=== PATIENT | female | born 1955 | race Hispanic/Latino ===

== ENCOUNTER 2021-06-19 08:51 | Outpatient (CLI) | payer OTHER | END 2021-06-19 08:52 | disposition home or self-care (01) | LOC: CSHMAMMO 08:51 | PROVIDERS: ATTEND Specialist | DX: Z08 Encounter for follow-up examination after completed treatment for malignant neoplasm (principal); Z85.3 Personal history of malignant neoplasm of breast | CPT/HCPCS: 77066; G0279 ==

== ENCOUNTER 2022-01-12 09:05 | Outpatient (CLI) | payer MEDICARE, OTHER ==
[2022-01-12] MEDS ORDERED: Magnevist 469MG/ML 20 ML VIAL ONE (09:34)
== END 2022-01-12 09:06 | disposition home or self-care (01) ==
LOC: CSHMRI 09:05
PROVIDERS: ATTEND Nurse Practitioner Adult Health
DX: G44.52 New daily persistent headache (NDPH) (principal); J32.9 Chronic sinusitis, unspecified
CPT/HCPCS: 70553; 82565

== ENCOUNTER 2022-04-08 12:31 | Outpatient (CLI) | payer MEDICARE, OTHER | END 2022-04-08 12:32 | disposition home or self-care (01) | LOC: CSHRAD 12:31 | PROVIDERS: ATTEND Nurse Practitioner Adult Health | DX: S60.012A Contusion of left thumb without damage to nail, initial encounter (principal); M25.531 Pain in right wrist; W19.XXXA Unspecified fall, initial encounter; S52.501A Unspecified fracture of the lower end of right radius, initial encounter for closed fracture; S52.601A Unspecified fracture of lower end of right ulna, initial encounter for closed fracture; S62.525A Nondisplaced fracture of distal phalanx of left thumb, initial encounter for closed fracture ==

== ENCOUNTER 2022-07-05 08:50 | Outpatient (CLI) | payer MEDICARE, OTHER | END 2022-07-05 08:51 | disposition home or self-care (01) | LOC: CSHMAMMO 08:50 | PROVIDERS: ATTEND Specialist | DX: Z08 Encounter for follow-up examination after completed treatment for malignant neoplasm (principal); Z85.3 Personal history of malignant neoplasm of breast | CPT/HCPCS: 77066; G0279 ==

== ENCOUNTER 2022-12-17 09:45 | Outpatient (CLI) | payer MEDICARE, OTHER | END 2022-12-17 09:46 | disposition home or self-care (01) | LOC: CSHMAMMO 09:45 | PROVIDERS: ATTEND Internal Medicine | DX: M85.88 Other specified disorders of bone density and structure, other site (principal); Z78.0 Asymptomatic menopausal state | CPT/HCPCS: 77080 ==

== ENCOUNTER 2022-12-21 12:51 | Outpatient (CLI) | payer MEDICARE, OTHER | END 2022-12-21 12:52 | disposition home or self-care (01) | LOC: CSHULT 12:51 | PROVIDERS: ATTEND Internal Medicine | DX: R01.1 Cardiac murmur, unspecified (principal); I51.9 Heart disease, unspecified | CPT/HCPCS: 93306 ==

== ENCOUNTER 2023-07-12 12:05 | Outpatient (CLI) | payer MEDICARE, OTHER | END 2023-07-12 12:06 | disposition home or self-care (01) | LOC: CSHMAMMO 12:05 | PROVIDERS: ATTEND Specialist | DX: Z12.31 Encounter for screening mammogram for malignant neoplasm of breast (principal); Z85.3 Personal history of malignant neoplasm of breast; Z98.890 Other specified postprocedural states | CPT/HCPCS: 77063; 77067 ==

== ENCOUNTER 2024-03-19 09:59 | Outpatient (CLI) | payer MEDICARE, OTHER ==
[2024-03-19] MEDS ORDERED: Magnevist 469MG/ML 20 ML VIAL ONE (10:28)
== END 2024-03-19 10:00 | disposition home or self-care (01) ==
LOC: CSHMRI 09:59
PROVIDERS: ATTEND Radiology Radiation Oncology
DX: C79.31 Secondary malignant neoplasm of brain (principal); Z98.890 Other specified postprocedural states; C50.919 Malignant neoplasm of unspecified site of unspecified female breast
CPT/HCPCS: 70553; 76377; A9579

== ENCOUNTER 2024-05-25 16:03 | Emergency (ER) | payer MEDICARE, OTHER ==
[~2024-05-25 16:03] MED LIST: Iopamidol 370 76% 100 ML VIAL ONE
[2024-05-25 19:22] LABS: #Basophils 0.04 10x3/uL (0.0-0.2); #Eosinophils 0.08 10x3/uL (0.0-0.5); #Monocytes 0.67 10x3/uL (0.0-1.1); #Neutrophils 2.22 10x3/uL (1.5-8.4); %Lymphocytes 25.3 % (18.0-47.0); %Monocytes 16.6 % (0.0-10.0); %Neutrophils 55.1 % (40.0-75.0); Hematocrit 36.8 % (34.9-44.5); Hemoglobin 12.9 g/dL (12.0-15.5); Mean Corpuscular HGB CONC 35.1 g/dL (32.0-36.0); Mean Corpuscular Hemoglobin 33.2 pg (27.0-33.0); Mean Corpuscular Volume 94.8 fL (81.6-98.3); Mean Platelet Volume 8.3 fL (7.4-10.4); Platelet Count 368 10x3/uL (150-450); RBC Distribution Width 13.3 % (11.5-14.5); Red Blood Cell (RBC) Count 3.88 10x6/uL (3.90-5.03)
[2024-05-25 19:38] LABS: INR-International Normal Ratio 1.1; Prothrombin Time 11.6 sec (9.5-12.1)
[2024-05-25 19:41] LABS: ALT (SGPT) 7 U/L (8-55); AST (SGOT) 16 U/L (5-34); Alkaline Phosphatase 68 U/L (40-110); Anion Gap 17 mmol/L (10-20); BUN (Urea Nitrogen) 6 mg/dL (9.8-20.1); Bilirubin, Total 0.5 mg/dL (0.2-1.2); Calc. Creatinine Clearance 0 mL/min (70-130); Calcium 10.2 mg/dL (7.8-10.44); Carbon Dioxide 23 mmol/L (23-31); Chloride 99 mmol/L (98-107); Estimated GFR 92; Globulin 3.6 g/dL (2.4-3.5); Glucose 86 mg/dL (80-115); Potassium 3.5 mmol/L (3.5-5.1); Protein, Total 7.6 g/dL (5.8-8.1); Sodium 135 mmol/L (136-145)
[2024-05-25 19:49] LABS: PTT Less than 20.0 sec (22.0-33.0)
== END 2024-05-25 22:19 | disposition home or self-care (01) ==
LOC: CSHERS 16:03
DX: I82.411 Acute embolism and thrombosis of right femoral vein (principal); I82.431 Acute embolism and thrombosis of right popliteal vein; I82.441 Acute embolism and thrombosis of right tibial vein; I71.40 Abdominal aortic aneurysm, without rupture, unspecified
CPT/HCPCS: 71275; 80053; 85025; 85610; 85730; 93971; 99284; Q9967; 36415

== ENCOUNTER 2024-07-05 09:49 | Outpatient (CLI) | payer MEDICARE, OTHER | END 2024-07-05 09:50 | disposition home or self-care (01) | LOC: CSHULT 09:49 | PROVIDERS: ATTEND Internal Medicine | DX: I82.401 Acute embolism and thrombosis of unspecified deep veins of right lower extremity (principal); I82.531 Chronic embolism and thrombosis of right popliteal vein | CPT/HCPCS: 93970 ==

== ENCOUNTER 2024-07-17 09:59 | Outpatient (CLI) | payer MEDICARE, OTHER | END 2024-07-17 10:00 | disposition home or self-care (01) | LOC: CSHMAMMO 09:59 | PROVIDERS: ATTEND Specialist | DX: Z12.31 Encounter for screening mammogram for malignant neoplasm of breast (principal); Z85.3 Personal history of malignant neoplasm of breast; Z98.890 Other specified postprocedural states | CPT/HCPCS: 77063; 77067 ==

== ENCOUNTER 2024-07-25 14:23 | Outpatient (CLI) | payer MEDICARE, OTHER ==
[2024-07-25 15:19] LABS: #Basophils 0.02 10x3/uL (0.0-0.2); #Eosinophils 0.01 10x3/uL (0.0-0.5); #Monocytes 0.68 10x3/uL (0.0-1.1); #Neutrophils 5.29 10x3/uL (1.5-8.4); %Basophils 0.3 % (0.0-2.0); %Eosinophils 0.2 % (0.0-6.0); %Monocytes 10.2 % (0.0-10.0); %Neutrophils 79.7 % (40.0-75.0); Hematocrit 34.6 % (34.9-44.5); Hemoglobin 12.4 g/dL (12.0-15.5); Mean Corpuscular HGB CONC 35.8 g/dL (32.0-36.0); Mean Corpuscular Hemoglobin 34.4 pg (27.0-33.0); Mean Corpuscular Volume 96.1 fL (81.6-98.3); Mean Platelet Volume 8.2 fL (7.4-10.4); Platelet Count 269 10x3/uL (150-450); RBC Distribution Width 15.2 % (11.5-14.5); White Blood Cell (WBC) Count 6.6 10x3/uL (3.5-10.5)
[2024-07-25 15:32] LABS: Anion Gap 13 mmol/L (10-20); BUN (Urea Nitrogen) 28 mg/dL (9.8-20.1); Calc. Creatinine Clearance 0 mL/min (70-130); Calcium 8.9 mg/dL (7.8-10.44); Carbon Dioxide 25 mmol/L (23-31); Chloride 101 mmol/L (98-107); Estimated GFR 95; Glucose 115 mg/dL (80-115); Potassium 3.9 mmol/L (3.5-5.1); Sodium 135 mmol/L (136-145)
== END 2024-07-25 14:24 | disposition home or self-care (01) ==
LOC: CSHLAB 14:23
PROVIDERS: ATTEND Specialist
DX: Z01.818 Encounter for other preprocedural examination (principal)
CPT/HCPCS: 71046; 80048; 85025; 93005; 93010

== ENCOUNTER 2024-07-30 10:17 | Day surgery (SDC) | payer MEDICARE, OTHER ==
[2024-07-25 14:51] VITALS: BMI 27.4
[2024-07-30] MEDS ORDERED: Acetaminophen 500 MG TAB ONE (11:17)
[2024-07-30] MEDS ORDERED: Ketorolac Tromethamine 30 MG (1 mL) VIAL ONE (11:17)
[2024-07-30] MEDS ORDERED: Bupivacaine/Epinephrine 0.25% 30 ML VIAL ONE (11:34)
[2024-07-30] MEDS ORDERED: PROPOFOL 40 ML ONE (11:54)
[2024-07-30] MEDS ORDERED: Lidocaine 1% PF 5 ML VIAL ONE ×2 (11:54→13:44)
[2024-07-30] MEDS ORDERED: fentaNYL 50 mcg/mL 1 mL Vial ONE ×2 (11:54→13:48)
[2024-07-30] MEDS ORDERED: Ondansetron PF 4 MG/2 ML Vial ONE ×2 (11:54→13:44)
[2024-07-30] MEDS ORDERED: Dexamethasone 4 mg/ml Vial ONE ×2 (11:54→13:44)
[2024-07-30] MEDS ORDERED: KETAMINE 100 MG/ML (5ML VIAL) ONE (11:56)
[2024-07-30] MEDS ORDERED: ePHEDrine Sulfate 50 MG/10 ML VIAL ONE (12:06)
[2024-07-30] MEDS ORDERED: CEFAZOLIN 2 GM VIAL ONE (12:27)
[2024-07-30] MEDS ORDERED: HYDROcodone/Acetaminophen 5/325 mg Tablet ONE (14:07)
== END 2024-07-30 15:00 | disposition home or self-care (01) ==
LOC: CSHSDC 10:17
PROVIDERS: ATTEND Specialist
PROC: 0JB60ZZ Excision of Chest Subcutaneous Tissue and Fascia, Open Approach (ICD-10-PCS; principal; 2024-07-30)
DX: C77.3 Secondary and unspecified malignant neoplasm of axilla and upper limb lymph nodes (principal); I11.0 Hypertensive heart disease with heart failure; I50.9 Heart failure, unspecified; I35.1 Nonrheumatic aortic (valve) insufficiency; E78.00 Pure hypercholesterolemia, unspecified; Z85.3 Personal history of malignant neoplasm of breast; Z96.651 Presence of right artificial knee joint; Z91.011 Allergy to milk products; Z88.0 Allergy status to penicillin; Z88.8 Allergy status to other drugs, medicaments and biological substances; Z79.01 Long term (current) use of anticoagulants; Z79.899 Other long term (current) drug therapy
CPT/HCPCS: 21556; J1100; J1885; J2405; J2704; J3010; 88305; 88341; 88342; 88361

== ENCOUNTER 2024-08-17 15:35 | Emergency (ER) | payer MEDICARE, OTHER ==
[2024-08-17 17:53] LABS: Bilirubin Neg (Negative); Blood, Urine Negative (Negative); Clarity Clear (Clear); Glucose, Urine (Dipstick) Normal (Negative); Ketone, Urine Negative (Negative); Leukocyte Negative (Negative); Nitrite Negative (Negative); Protein, Urine (Dipstick) Negative (Neg-Trace); Urobilinogen Normal mg/dL (Less than 2)
[2024-08-17 18:14] LABS: #Basophils 0.01 10x3/uL (0.0-0.2); #Monocytes 0.61 10x3/uL (0.0-1.1); #Neutrophils 5.48 10x3/uL (1.5-8.4); %Basophils 0.2 % (0.0-2.0); %Lymphocytes 7.3 % (18.0-47.0); %Monocytes 9.2 % (0.0-10.0); %Neutrophils 82.8 % (40.0-75.0); Hematocrit 33.4 % (34.9-44.5); Hemoglobin 11.9 g/dL (12.0-15.5); Mean Corpuscular HGB CONC 35.6 g/dL (32.0-36.0); Mean Corpuscular Hemoglobin 34.6 pg (27.0-33.0); Mean Corpuscular Volume 97.1 fL (81.6-98.3); Mean Platelet Volume 8.5 fL (7.4-10.4); Platelet Count 341 10x3/uL (150-450); RBC Distribution Width 16.4 % (11.5-14.5); Red Blood Cell (RBC) Count 3.44 10x6/uL (3.90-5.03); White Blood Cell (WBC) Count 6.6 10x3/uL (3.5-10.5)
[2024-08-17] MEDS ORDERED: HYDROcodone/Acetaminophen 5/325 mg Tablet ONE (18:18)
[2024-08-17] MEDS ORDERED: Acetaminophen 500 MG TAB ONE (18:21)
[2024-08-17 18:23] LABS: AST (SGOT) 15 U/L (5-34); Bilirubin, Total 0.5 mg/dL (0.2-1.2); Calcium 9.3 mg/dL (7.8-10.44); Chloride 105 mmol/L (98-107); Potassium 4.3 mmol/L (3.5-5.1); Sodium 138 mmol/L (136-145)
[2024-08-17 18:30] LABS: Troponin I 0.021 ng/mL (< 0.028)
[2024-08-17 18:32] LABS: Bacteria/HPF Rare-Few HPF (None Seen); CAUTI Indications for Culture Pelvic or flank pain; RBC/HPF 0-3 HPF (0-3); Squamous Epithelial None Seen HPF (0-3); WBC/HPF None Seen HPF (0-3)
[2024-08-17 18:33] LABS: Urine Culture Reflex No No
[2024-08-17 18:37] LABS: ALT (SGPT) 17 U/L (8-55); Albumin 3.7 g/dL (3.4-4.8); Alkaline Phosphatase 53 U/L (40-110); Anion Gap 16 mmol/L (10-20); BUN (Urea Nitrogen) 21 mg/dL (9.8-20.1); Calc. Creatinine Clearance 0 mL/min (70-130); Carbon Dioxide 20 mmol/L (23-31); Estimated GFR 95; Globulin 3.1 g/dL (2.4-3.5); Glucose 110 mg/dL (80-115); Protein, Total 6.8 g/dL (5.8-8.1)
== END 2024-08-17 19:21 | disposition home or self-care (01) ==
LOC: CSHERS 15:35
DX: R53.83 Other fatigue (principal); R42 Dizziness and giddiness; I50.9 Heart failure, unspecified
CPT/HCPCS: 70450; 71045; 80053; 81001; 83880; 84484; 85025; 87428; 93005

== ENCOUNTER 2024-09-04 09:10 | Day surgery (SDC) | payer MEDICARE, OTHER ==
[2024-09-03 08:58] VITALS: BMI 29.5
[2024-09-04] MEDS ORDERED: Acetaminophen 500 MG TAB ONE (09:30)
[2024-09-04] MEDS ORDERED: Ketorolac Tromethamine 30 MG (1 mL) VIAL ONE (09:30)
[2024-09-04] MEDS ORDERED: Lidocaine 2% MPF 10 ML AMP (For Epidural Use) ONE (10:14)
[2024-09-04] MEDS ORDERED: Bupivacaine/Epinephrine 0.25% 30 ML VIAL ONE (10:15)
[2024-09-04] MEDS ORDERED: PROPOFOL 20 ML ONE (10:23)
[2024-09-04] MEDS ORDERED: Lidocaine 2% PF 5 ML VIAL ONE (10:23)
[2024-09-04] MEDS ORDERED: CEFAZOLIN 2 GM VIAL ONE (10:28)
[2024-09-04] MEDS ORDERED: fentaNYL 50 mcg/mL 1 mL Vial ONE (10:50)
[2024-09-04] MEDS ORDERED: Dexamethasone 4 mg/ml Vial ONE (10:50)
[2024-09-04] MEDS ORDERED: PHENYLEPHRINE-NS 100 MCG/ML 10 ML SYRINGE ONE (10:50)
[2024-09-04] MEDS ORDERED: Ondansetron PF 4 MG/2 ML Vial ONE (10:50)
[2024-09-04] MEDS ORDERED: ePHEDrine Sulfate 50 MG/10 ML VIAL ONE (11:03)
== END 2024-09-04 12:40 | disposition home or self-care (01) ==
LOC: CSHSDC 09:10
PROVIDERS: ATTEND Specialist
PROC: 0JH63WZ Insertion of Totally Implantable Vascular Access Device into Chest Subcutaneous Tissue and Fascia, Percutaneous Approach (ICD-10-PCS; principal; 2024-09-04)
DX: C50.912 Malignant neoplasm of unspecified site of left female breast (principal); C79.31 Secondary malignant neoplasm of brain; C77.3 Secondary and unspecified malignant neoplasm of axilla and upper limb lymph nodes; I50.9 Heart failure, unspecified; E78.00 Pure hypercholesterolemia, unspecified; M17.11 Unilateral primary osteoarthritis, right knee; K21.9 Gastro-esophageal reflux disease without esophagitis; Z79.899 Other long term (current) drug therapy; Z98.890 Other specified postprocedural states; Z88.0 Allergy status to penicillin; Z91.011 Allergy to milk products; Z88.7 Allergy status to serum and vaccine; Z96.651 Presence of right artificial knee joint; Z79.01 Long term (current) use of anticoagulants
CPT/HCPCS: 36561; 71045; C1788; J1100; J1642; J1885; J2405; J2704; J3010

== ENCOUNTER 2024-09-17 16:06 | Emergency (ER) | payer MEDICARE, OTHER ==
[2024-09-17 16:40] LABS: #Basophils Less than 0.03 10x3/uL (0.0-0.2); #Eosinophils Less than 0.03 10x3/uL (0.0-0.5); #Monocytes 0.47 10x3/uL (0.0-1.1); #Neutrophils 4.77 10x3/uL (1.5-8.4); %Basophils 0.4 % (0.0-2.0); %Eosinophils 0.4 % (0.0-6.0); %Lymphocytes 6.2 % (18.0-47.0); %Monocytes 8.3 % (0.0-10.0); Hemoglobin 10.8 g/dL (12.0-15.5); Mean Corpuscular HGB CONC 33.8 g/dL (32.0-36.0); Mean Corpuscular Hemoglobin 32.5 pg (27.0-33.0); Mean Corpuscular Volume 96.4 fL (81.6-98.3); Mean Platelet Volume 8.3 fL (7.4-10.4); Platelet Count 361 10x3/uL (150-450); RBC Distribution Width 13.8 % (11.5-14.5); Red Blood Cell (RBC) Count 3.32 10x6/uL (3.90-5.03); White Blood Cell (WBC) Count 5.67 10x3/uL (3.5-10.5)
[2024-09-17 16:59] LABS: ALT (SGPT) 20 U/L (Less than 34); AST (SGOT) 29 U/L (11-34); Albumin 3.6 g/dL (3.1-4.5); Alkaline Phosphatase 124 U/L (40-110); Anion Gap 15 mmol/L (10-20); BUN (Urea Nitrogen) 20 mg/dL (9.8-20.1); Bilirubin, Total 0.7 mg/dL (0.3-1.2); Calc. Creatinine Clearance 0 mL/min (70-130); Calcium 9.7 mg/dL (7.8-10.44); Carbon Dioxide 22 mmol/L (23-31); Chloride 102 mmol/L (98-107); Estimated GFR 99; Globulin 3.3 g/dL (2.4-3.5); Glucose 102 mg/dL (80-115); Potassium 3.5 mmol/L (3.5-5.1); Protein, Total 6.9 g/dL (5.8-8.1); Sodium 135 mmol/L (136-145)
[2024-09-17 17:00] LABS: PTT 30.2 sec (22.0-33.0); Prothrombin Time 10.9 sec (9.5-12.1)
[2024-09-17] MEDS ORDERED: Morphine 4 MG/ML VIAL ONE (17:39)
== END 2024-09-17 21:34 ==
LOC: CSHERS 16:06
DX: S32.591A Other specified fracture of right pubis, initial encounter for closed fracture (principal); I10 Essential (primary) hypertension; E78.5 Hyperlipidemia, unspecified; W07.XXXA Fall from chair, initial encounter
CPT/HCPCS: 70450; 72192; 80053; 85025; 85610; 85730; J2270; 36415; 96374